=== PATIENT | female | born 1995 | race Caucasian/White ===

== ENCOUNTER 2020-08-12 09:50 | Inpatient (IN) | payer BC, OTHER ==
[2020-08-12 10:52] VITALS: BMI 27.1
[2020-08-12 11:15] LABS: BASO % 0.1 % (0-2.0); EOS % 0.2 % (0-4.5); HEMATOCRIT 28.7 % (32.4-45.2); LYMPH % 17.8 % (8-40); MCH 31.1 pg (25.7-33.7); MCHC 34.8 g/dl (32.0-36.0); MEAN CELL VOLUME 89.3 fl (80-96); MEAN PLT VOLUME 9.6 fl (7.5-11.1); MONO % 5.2 % (3.8-10.2); NEUT % 76.7 % (42.8-82.8); PLATELET COUNT 177 K/MM3 (134-434); RBC 3.22 M/mm3 (3.60-5.2); RDW 17.3 % (11.6-15.6); WHITE BLOOD COUNT 9.7 K/mm3 (4.0-10.0)
[2020-08-12 11:20] LABS: INR 1.03 (0.83-1.09); PROTHROMBIN TIME (PATIENT) 12.6 SEC (9.7-13.0)
[2020-08-12 11:23] LABS: ACTIVATED PTT 27.1 SECONDS (25.2-36.5)
[2020-08-12 11:27] LABS: POTASSIUM 3.8 mmol/L (3.5-5.1)
[2020-08-12 11:29] LABS: BLOOD UREA NITROGEN 9.3 mg/dL (7-18); CALCIUM 8.6 mg/dL (8.5-10.1)
[2020-08-12 11:33] LABS: CREATININE 0.5 mg/dL (0.55-1.3)
[2020-08-12 12:24] LABS: HIV INTERPRETATION NEGATIVE (NEGATIVE)
[2020-08-12] MEDS ORDERED: ELECTROLYTE-148 SOLN 1,000 ML IV SCH (13:00)
[2020-08-12 13:35] LABS: ANISOCYTOSIS 0; HELMET CELLS 0; HOWELL-JOLLY BODIES 0; MACROCYTOSIS 0; OVALOCYTE 0; PLATELET ESTIMATE NORMAL; ROULEAU 0; SICKELED CELLS 0; TARGET CELLS 0; TEAR DROP CELLS 0; TOXIC GRANULATION 0
[2020-08-12] MEDS ORDERED: OXYTOCIN 30 UNITS in 0.9% NS 30 UNIT/500 ML INFUS.BAG IVPB SCH (16:15)
[2020-08-12] MEDS ORDERED: OXYTOCIN 30 UNITS in 0.9% NS 30 UNIT/500 ML INFUS.BAG IVPB ONE (16:44)
[2020-08-12] MEDS ORDERED: FENTANYL/BUPIVACAINE/NS/PF - PCEA - 50 ML DISP.SYRIN EP ONE ×2 (18:21→22:20)
[2020-08-12] MEDS ORDERED: NALOXONE HCL 0.4 MG/ML VIAL IVPUSH PRN (18:22)
[2020-08-12] MEDS ORDERED: FENTANYL/BUPIVACAINE/NS/PF - PCEA - 50 ML DISP.SYRIN EP SCH (18:30)
[2020-08-12] MEDS ORDERED: PCA PUMP NR ONE (22:18)
[2020-08-12] MEDS ORDERED: OXYTOCIN 20 UNITS in 0.9% NS 20 UNIT/1,000 ML INFUS.BAG IV ONE (22:30)
[2020-08-12] MEDS ORDERED: LIDOCAINE HCL 1% PRESERVATIVE FREE - 30ML VIAL ONE (22:31)
[2020-08-12] MEDS ORDERED: BENZOCAINE 28 GM HEMORRHOIDAL OINTMENT TP PRN (22:59)
[2020-08-12] MEDS ORDERED: BENZOCAINE 20% 57 GM BOTTLE TP PRN (22:59)
[2020-08-12] MEDS ORDERED: BISACODYL 10 MG SUPP.RECT RC PRN (22:59)
[2020-08-12] MEDS ORDERED: oxyCODONE HCL 5 MG TABLET PO PRN (22:59)
[2020-08-12] MEDS ORDERED: METHYLERGONOVINE MALEATE 0.2 MG/1 ML AMP IM PRN (22:59)
[2020-08-12] MEDS ORDERED: WITCH HAZEL 50% (TUCKS) 40 PAD/JAR PAD TP PRN (22:59)
[2020-08-12] MEDS ORDERED: OXYTOCIN 20 UNITS in 0.9% NS 20 UNIT/1,000 ML INFUS.BAG IV SCH (23:00)
[2020-08-12] MEDS ORDERED: IBUPROFEN 600 MG TABLET (FP) PO ONE (23:56)
[2020-08-12] MEDS ORDERED: ACETAMINOPHEN 325 MG TABLET (FP) ONE (23:57)
[2020-08-13] MEDS: IBUPROFEN 600 MG TABLET (FP) PO PRN ×2 (05:03)
[2020-08-13] MEDS: ACETAMINOPHEN 325 MG TABLET (FP) PO PRN ×2 (05:03)
[2020-08-13 08:38] LABS: BASO % 0.2 % (0-2.0); HEMATOCRIT 29.1 % (32.4-45.2); HEMOGLOBIN 9.9 GM/dL (10.7-15.3); LYMPH % 13.1 % (8-40); MCH 30.8 pg (25.7-33.7); MEAN CELL VOLUME 90.6 fl (80-96); MEAN PLT VOLUME 9.9 fl (7.5-11.1); NEUT % 81.7 % (42.8-82.8); PLATELET COUNT 151 K/MM3 (134-434); RBC 3.22 M/mm3 (3.60-5.2); RDW 17.6 % (11.6-15.6); WHITE BLOOD COUNT 13.1 K/mm3 (4.0-10.0)
[2020-08-13] MEDS: ceFAZolin 2 GRAM PREMIX BAG IVPB SCH ×2 (09:01→17:07)
[2020-08-13] MEDS: PRENATAL VITAMINS W/ FOLIC ACID TABLET (FP) PO SCH (09:01)
[2020-08-13] MEDS ORDERED: SENNOSIDES/DOCUSATE COMBO (SENNA PLUS) TABLET (UD) PO PRN (22:00)
[2020-08-13 23:39] VITALS: PULSE 84
[2020-08-14] MEDS: PRENATAL VITAMINS W/ FOLIC ACID TABLET (FP) PO SCH (09:27)
[2020-08-14 11:53] VITALS: BP 104/72; TEMP 97.3
== END 2020-08-14 14:30 | disposition home or self-care (01) | DRG 807 ==
LOC: JLDR 09:50 → J3W 08-13 01:00
PROVIDERS: ADMIT Obstetrics & Gynecology; ATTEND Obstetrics & Gynecology
PROC: 10E0XZZ Delivery of Products of Conception, External Approach (ICD-10-PCS; principal; 2020-08-12)
PROC: 3E033VJ Introduction of Other Hormone into Peripheral Vein, Percutaneous Approach (ICD-10-PCS; 2020-08-12)
PROC: 10907ZC Drainage of Amniotic Fluid, Therapeutic from Products of Conception, Via Natural or Artificial Opening (ICD-10-PCS; 2020-08-12)
DX: O32.6XX0 Maternal care for compound presentation, not applicable or unspecified (principal); Z37.0 Single live birth; Z3A.39 39 weeks gestation of pregnancy
CPT/HCPCS: 36415; 59409; 80048; 85025; 85610; 85730; 86780; 86850; 86900; 86901; 87389; C9803; U0003